=== PATIENT | female | born 1980 | race Caucasian/White ===

== ENCOUNTER 2016-06-02 11:12 | Emergency (ER) | payer OTHER ==
[2016-06-02 11:52] LABS: SPECIFIC GRAVITY 1.015 (1.001-1.030); URINE BILIRUBIN NEGATIVE (NEGATIVE); URINE BLOOD NEGATIVE (NEGATIVE); URINE GLUCOSE (UA) NEGATIVE (NEGATIVE); URINE LEUKOCYTE ESTERASE NEGATIVE (NEGATIVE); URINE NITRITE NEGATIVE (NEGATIVE); URINE PROTEIN NEGATIVE (NEGATIVE); URINE UROBILINOGEN NORMAL (0-1 mg/dl)
[2016-06-02 12:04] LABS: URINE APPEARANCE CLEAR; URINE COLOR YELLOW
[2016-06-02] MEDS ORDERED: SODIUM CHLORIDE 0.9% 1,000 ML ONE (12:27)
[2016-06-02] MEDS ORDERED: ONDANSETRON 4 MG/2ML 2 ML VIAL ONE (12:27)
[2016-06-02] MEDS ORDERED: MORPHINE SULFATE 4 MG/ML SYRINGE ONE (12:38)
[2016-06-02 12:41] LABS: ABSOLUTE NEUTROPHIL COUNT 8.2 K/mm3 (1.8-7.7); BASO % 0.3 % (0.2-1.0); EOS # 0.1 (0.0-0.5); HEMATOCRIT 31.6 % (37.0-47.0); HEMOGLOBIN 10.8 gm/l (12.0-16.0); IMM NEUT # 0.5 K/mm3 (0-0.2); IMM NEUT% 4.1 % (0-1); LYMPH # 1.6 (1.0-4.8); LYMPH % 13.5 % (15-45); MEAN CELL VOLUME 88.8 fl (81.0-99.0); MEAN CORPUSCULAR HEMOGLOBIN 30.3 pg (27.0-31.0); MEAN CORPUSCULAR HGB CONC 34.2 g/dl (33.0-37.0); MONO # 1.2 (0.0-0.8); MONO % 10.1 % (4-12); PLATELET COUNT 261 K/mm3 (130-400); RED CELL DISTRIBUTION WIDTH 13.1 % (11.5-14.5)
--- NOTE | 2016-06-02 13:07 | CT ---
HEAD CT WITHOUT CONTRAST HISTORY: 37 weeks . Headache. Arm numbness and tingling. No intravenous contrast administered. Contiguous axial images acquired from skull base to vertex. COMPARISON:None. BRAIN VOLUME:Grossly unremarkable for patient age. VENTRICULAR SIZE:No gross ventriculomegaly. FOCAL MASS EFFECT:None. ACUTE INTRACRANIAL HEMORRHAGE:None. CALVARIUM:Grossly intact. VISIBLE PARANASAL SINUSES AND MASTOID AIR CELLS:Grossly clear. IMPRESSION: No gross mass effect, ventriculomegaly, or acute intracranial hemorrhage. Results were electronically transmitted to the electronic medical record at 06/02/2016 at 1304 hours.
--- NOTE | 2016-06-02 13:10 | CT ---
CERVICAL SPINE CT WITHOUT CONTRAST HISTORY: Upper extremity numbness, . No intravenous contrast administered contiguous axial images acquired from the posterior fossa to the lower T2 level. FINDINGS ALIGNMENT: Moderate stenosis of gross listhesis. COMPRESSION DEFORMITY: None. DISC SPACES: Mild to moderate narrowing at the C5-6 level with osteophyte formation. FRACTURE: No displaced fracture. DEGENERATIVE CHANGE: Disc osteophyte ridge formation at C5-6 with suggestion of broad-based central protrusion, evaluation at this level limited right shoulder artifact. FORAMINAL NARROWING: None identified. PARASPINAL SOFT TISSUES: Airway patent. No gross mass effect. LUNG APICES: Grossly unremarkable within field of view. IMPRESSION: Reversal of cervical lordosis which can relate to positioning or spasm. Early disc degeneration at the C5-6 level. No cervical spine fracture identified.
[2016-06-02 13:41] LABS: I-STAT GLUCOSE 78 mg/dL (70-105)
[2016-06-02 13:42] LABS: I-STAT CHLORIDE 105 mEq/L (101-111); I-STAT CREATININE 0.4 mg/dL (0.6-1.3); I-STAT TCO2 21 mEq/L (21-31)
[2016-06-02] MEDS ORDERED: MORPHINE SULFATE 2 MG/ML SYRINGE ONE (14:05)
[2016-06-02 14:31] LABS: ALB/GLOB RATIO 1.2 (>1.0); ALBUMIN 3.7 gm/dL (3.5-5.7); CALCIUM 9.2 mg/dL (8.6-10.3)
== END 2016-06-02 14:32 | disposition home or self-care (01) ==
LOC: ED 11:12
DX: O26.893 Other specified pregnancy related conditions, third trimester (principal); R51 Headache; R20.0 Anesthesia of skin; M50.322 Other cervical disc degeneration at C5-C6 level; Z3A.37 37 weeks gestation of pregnancy
CPT/HCPCS: 85025; 80047; 80053; 81003; 72125; 70450; 96375; 96376; 99284 ×2; 96374; J2270 ×2; J2405; J7030

== ENCOUNTER 2016-06-19 16:51 | Inpatient (IN) | payer OTHER ==
[2016-06-19 17:18] VITALS: BMI 30.2
--- NOTE | 2016-06-19 18:59 | US ---
Exam: Obstetric ultrasound biophysical profile COMPARISON: None INDICATION: Post dates. Nonreassuring strip in clinic. EGA 40 weeks 5 days. Findings: Obstetric ultrasound biophysical profile was obtained. Real-time sonographic imaging demonstrated a single live intrauterine in vertex presentation with a heart rate of 133 bpm. JOSE is 35.4 cm. Biophysical profile is as follows: breathing movements: 0 motion: 2 tone: 2 Amniotic fluid volume: 2 Total score 6 out of 8. IMPRESSION: 1. Biophysical profile score 6 out of 8, score of 0 for breathing movements. 2. JOSE 35.4 cm. 3. Single live intrauterine in vertex presentation with a heart rate of 133 bpm. Report called to Dr. Mcdonald 1855 hours 06/19/2016.
[2016-06-19] MEDS ORDERED: OXYTOCIN IN LR 500 ML IV ONE ×2 (19:40→20:13)
[2016-06-19] MEDS ORDERED: LACTATED RINGERS 1,000 ML ONE (20:13)
[2016-06-19] MEDS ORDERED: MINERAL OIL 25 ML BOT ONE (20:13)
[2016-06-19] MEDS ORDERED: LIDOCAINE Viscous 2% 15 ML UDCUP ONE (20:13)
[2016-06-19] MEDS ORDERED: IV START KIT ONE (20:13)
[2016-06-19] MEDS ORDERED: OXYTOCIN 10 UNITS/ML VIAL ONE (20:13)
[2016-06-19] MEDS ORDERED: LIDOCAINE 1% (PRES FREE) 30 ML VIAL ONE (20:13)
[2016-06-19] MEDS ORDERED: PUMP TUBING ONE (20:13)
[2016-06-19] MEDS ORDERED: CALCIUM CARBONATE 500 MG TAB.CHEW PO PRN (22:40)
--- NOTE | 2016-06-19 22:48 | PDOC36 ---
Provider Note Subject: Intrapartum note Note: Full H&P dictated Pt feeling some contractions more now. FHT: 130's, reactive, mod melissa [place]: q2-3 min SVE: 2//-3 Cook catheter, 60cc placed Continue mechanical induction
[2016-06-20 00:14] LABS: HEMATOCRIT 36.2 % (37.0-47.0); HEMOGLOBIN 11.9 gm/l (12.0-16.0); MEAN CELL VOLUME 90.5 fl (81.0-99.0); MEAN CORPUSCULAR HEMOGLOBIN 29.8 pg (27.0-31.0); MEAN CORPUSCULAR HGB CONC 32.9 g/dl (33.0-37.0); RED CELL DISTRIBUTION WIDTH 13.6 % (11.5-14.5)
[2016-06-20] MEDS ORDERED: DIPHENHYDRAMINE HCL 25 MG CAPSULE PO ONE (01:56)
[2016-06-20] MEDS ORDERED: BUTORPHANOL TARTRATE 1 MG/ML VIAL IV ONE (03:10)
[2016-06-20] MEDS: LACTATED RINGERS 1,000 ML IV PRN ×3 (04:06→06:06)
[2016-06-20] MEDS ORDERED: EPIDURAL PUMP SET ONE (04:13)
[2016-06-20] MEDS ORDERED: FENTANYL/ROPIVACAINE EPIDURAL 250 ML EP ONE (04:14)
[2016-06-20] MEDS: FENTANYL/ROPIVACAINE EPIDURAL 250 ML EP SCH (04:57)
[2016-06-20] MEDS ORDERED: EPIDURAL PROCEDURE TRAY ONE (05:17)
[2016-06-20] MEDS ORDERED: NALOXONE HCL 0.4 MG/ML VIAL IV PRN (05:40)
[2016-06-20] MEDS ORDERED: ONDANSETRON 4 MG/2ML 2 ML VIAL IV PRN (05:40)
[2016-06-20] MEDS ORDERED: METOCLOPRAMIDE HCL 5 MG/ML 2ML VIAL IV PRN (05:40)
[2016-06-20] MEDS ORDERED: EPHEDRINE SULFATE 50 MG/ML 1ML VIAL IV PRN (05:40)
[2016-06-20] MEDS ORDERED: NALBUPHINE HCL 20 MG/ML AMP IV PRN (05:40)
[2016-06-20] MEDS ORDERED: DIPHENHYDRAMINE HCL 50 MG/1 ML VIAL IV PRN (05:40)
[2016-06-20] MEDS ORDERED: SODIUM CHLORIDE 0.9% 500 ML IV PRN (05:40)
[2016-06-20] MEDS ORDERED: LACTATED RINGERS 500 ML IV PRN (05:40)
[2016-06-20] MEDS: LACTATED RINGERS 1,000 ML IV SCH ×3 (08:07→10:26)
--- NOTE | 2016-06-20 08:41 | PDOC36 ---
Provider Note Subject: Feeling regular contractions. VSS SVE: 6/100/B, AROM to copious clear fluid FHT: 145/mod/+accel/-decel [place]: q3 min Plan: IOL for polyhydramnios. Patient francie on her own. H/O large babies. EFW 8#11oz. AROM to copious clear fluid. Will continue to monitor closely.
[2016-06-20] MEDS ORDERED: FAMOTIDINE 20 MG TABLET PO SCH (09:00)
--- NOTE | 2016-06-20 09:15 | HP ---
Enid White [id number] DATE OF ADMISSION: 06/22/2016 ADMITTING DIAGNOSES: 1. A 39 weeks plus 3 days . 2. Polyhydramnios. 3. Labor. 4. Induction of labor. HISTORY AND PHYSICAL: The patient is a 36-year-old 4, para 3-0-0-3 with estimated delivery date of 06/23/2016. The patient was initially dated by a 12 week ultrasound and has been followed by Dr. Mcdonald in the office. Patient has a history of anxiety, depression, and chronic pain and has discontinued her medications of Adderall, Xanax, Oxycodone, and Gabapentin in early . Patient had declined genetic testing in early , however, subsequently had a negative quad screen. 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 The placenta was posterior. One hour glucose testing was negative. Patient was recently admitted approximately three weeks ago with conglomeration of symptoms including headaches and numbness in arms and hands. Symptoms at that time have since resolved. At approximately 37 weeks it was noted that patient had a slightly increased fundal height and this has increased today to 43 cm. An ultrasound was subsequently performed which showed estimated weight of 3928 gm, however, the amniotic fluid index was 37. A non-stress test showed heart tracing in the 130's with minimal variability and subsequently she was transferred to [facility] for further evaluation. heart tracing in the [facility] was 130's and moderate variability, reactive, and reassuring. A biophysical profile was 6/8 with -2 for breathing. Patient's laboratory studies showed a blood type of A positive with negative antibody screen. Her Group B Streptococcus screen was negative and one hour glucose test was negative as well. Other testing was unremarkable. PAST MEDICAL HISTORY: Patient has a history of depression, anxiety, and panic attacks, as well as lower back pain. She had been on Gabapentin, Adderall, and Xanax, as well as occasional oxycodone for her pain, however, has not taken these medications throughout her . PAST OBSTETRICAL HISTORY: Patient has had three prior normal vaginal deliveries. Patient's first had a duplicate renal system. Her babies range from 8 pounds 7 ounces to 8 pounds 11 ounces. PHYSICAL EXAMINATION: GENERAL: The patient is in mild discomfort with her contractions. HEART: Regular rate and rhythm. LUNGS: Clear to auscultation bilaterally. ABDOMEN: Distended and gravid and appears to have a enlarged weight, however, ultrasound shows polyhydramnios. EXTREMITIES: Normal. PELVIC: Shows cervix 1 to 2 cm dilated, 90% effaced, -3 station, and cephalic. ASSESSMENT AND PLAN: This is a 36-year-old 4, para 3 at 39 weeks plus 3 days. Patient is francie regularly every 2 to 3 minutes and heart tracing is 130's reactive with moderate variability, however, with some equivocal biophysical profile testing score of 6/8 along with polyhydramnios of uncertain etiology I have recommended to go ahead and admit the patient for monitoring overnight with induction of labor. The plan has been reviewed with the patient. The risk of induction including section, hyperstimulation, or infection were reviewed. We have discussed polyhydramnios and possible etiologies though, the etiology of her polyhydramnios is currently uncertain. JOB: [id number]
--- NOTE | 2016-06-20 11:15 | PCMDEL ---
Delivery Note - Labor Pushed (hr/min):: 3 min - Delivery Delivery (Date): 06/20/16 Delivery (Time): 11:01 Gender: Male Presentation: Cephalic Position: OA Umbilical Cord: 3 Vessel Delayed Cord Clamping:: < 1-2 min 1 Minute Total: 9 5 Minute Total: 9 Placenta:: intact EBL:: 150 Perineum:: intact Anesthesia/Meds:: epidural
[2016-06-20] MEDS ORDERED: BENZOCAINE/MENTHOL 60 APPLIC/BOT TP PRN (11:30)
[2016-06-20] MEDS ORDERED: ACETAMINOPHEN 325 MG TABLET PO PRN (11:30)
[2016-06-20] MEDS ORDERED: MEASLES,MUMPS&RUBELLA VACCINE 0.5 ML VIAL SUB-Q V ONE (11:30)
[2016-06-20] MEDS ORDERED: LANOLIN 50 APPLIC/7G TUBE TP PRN (11:30)
[2016-06-20] MEDS ORDERED: PNEUMOCOCCAL 23-VAL P-SAC VAC 0.5 ML VIAL SUB-Q V ONE (11:35)
[2016-06-20] MEDS ORDERED: LACTATED RINGERS 1,000 ML ONE (12:19)
[2016-06-20] MEDS ORDERED: IV START KIT ONE (12:19)
[2016-06-20] MEDS: IBUPROFEN 800 MG TABLET PO PRN (15:34)
[2016-06-20] MEDS: OXYCODONE/ACETAMINOPHEN 5/325 MG TABLET PO PRN ×2 (16:47→20:08)
[2016-06-21] MEDS: OXYCODONE/ACETAMINOPHEN 5/325 MG TABLET PO PRN ×8 (01:05→23:14)
[2016-06-21] MEDS: IBUPROFEN 800 MG TABLET PO PRN ×4 (01:05→20:23)
[2016-06-21 06:58] LABS: HEMATOCRIT 30.2 % (37.0-47.0); HEMOGLOBIN 10.2 gm/l (12.0-16.0)
[2016-06-21] MEDS: DOCUSATE SODIUM 100 MG CAPSULE PO PRN ×2 (07:52→17:30)
[2016-06-21] MEDS: FENTANYL/ROPIVACAINE EPIDURAL 250 ML EP SCH (07:53)
--- NOTE | 2016-06-21 10:17 | PDOC44 ---
- Subjective Day: 1 Pt is sitting up in bed; appears happy and comfortable; make-up on. Baby is with dad, bonding. Pt describes her suffering with chronic back pain. She also has noticed a weird feeling in SI area on left since placement of epidural. This was discussed. If she is concerned, I will have her talk with environmental health and safety intern. Right now percocet seems to be working well for her. We also discussed baby's broken clavicle: very surprising since she did minimal pushing and there was no dystocia with the at all. Reports Pain Tolerable, Reports , Reports Lochia Light - Objective Temp Pulse Resp BP Pulse Ox 98.0 F 74 18 130/81 06/21/16 08:40 06/21/16 08:40 06/21/16 08:40 06/21/16 08:40 Lab Results 06/21/16 06:15 Hgb 10.2 L Hct 30.2 L Current Medications Generic Name Dose Route Start Last Admin Trade Name Freq PRN Reason Stop Dose Admin Acetaminophen 325 - 650 mg 06/20/16 11:30 Tylenol PO Q4H PRN Pain (Mild) Benzocaine/Menthol 1 applic 06/20/16 11:30 Dermoplast TP PRN PRN Patient Comfort Docusate Sodium 100 mg 06/20/16 11:30 06/21/16 07:52 Colace PO 100 mg DAILY PRN Administration Comfort Emollient Ointment 1 applic 06/20/16 11:30 Wza-G-Iiksif TP PRN PRN sore nipples Ropivacaine/Fentanyl/NS 250 mls @ 0 mls/hr 06/20/16 05:00 06/21/16 07:53 Fentanyl 2 Mcg/Ml + Ropivacaine 0.125% Ep Bag EP Not Given EPI DAVIDA Protocol Per Protocol Ibuprofen 800 mg 06/20/16 11:30 06/21/16 07:52 Motrin PO 800 mg Q6H PRN Administration Pain (Mild) Oxycodone/Acetaminophen 1 tab 06/20/16 16:35 06/21/16 07:53 Percocet 5/325 PO 1 tab Q3H PRN Administration Pain Sodium Chloride 10 ml 06/20/16 09:00 06/21/16 07:53 Normal Saline 10ml Flush IV Not Given Q8HR [facility] Sodium Chloride 10 ml 06/20/16 11:30 06/20/16 13:45 Normal Saline 10ml Flush IV 10 ml PRN PRN Administration IV Flush - Physical Exam General: Afebrile Psych/Mental Status: Mood/Affect Appropriate Neurological: Alert, Oriented x 4 Lungs: Clear to Auscultation Bilaterally Cardiovascular: Regular Rate and Rhythm Skin: Normal Color, Warm - Problems:Assessment/Plan (1) (normal spontaneous vaginal delivery) Status: AcuteAssessment/Plan: Pt seems to be doing well ppartum. Succesful induction of labor due to BPP of 6 /8 and polyhydramnios. Vag yesterday morning with benefit of epidural narcotics. Post cramping with and also chronic back pain controlled with ibuprofen and percocet. Baby noted to have a fractured clavicle. (2) Polyhydramnios Status: AcuteAssessment/Plan: kidneys being assessed by baby doc. Disposition: Stable, Anticipate DC Home Tomorrow
[2016-06-21] MEDS ORDERED: MAGNESIUM HYDROXIDE 30 ML UDCUP PO PRN (17:33)
[2016-06-21] MEDS: DOCUSATE SODIUM 100 MG CAPSULE PO SCH (20:23)
[2016-06-22] MEDS: OXYCODONE/ACETAMINOPHEN 5/325 MG TABLET PO PRN ×3 (02:08→09:07)
[2016-06-22] MEDS: IBUPROFEN 800 MG TABLET PO PRN ×2 (05:39→11:49)
--- NOTE | 2016-06-22 07:53 | PDOC39B ---
Hospital Course: ADMIT DATE: 06/19/16 DISCHARGE DATE: 06/22/16 ADMISSION DIAGNOSES: intrauterine 39.3 weeks, polyhydramnios, labor PROCEDURES: induction of labor, spontaneous vaginal delivery HISTORY OF PRESENT ILLNESS: 36 year old G4 T3 L3 at 39 weeks 4 days presenting for induction of labor HOSPITAL COURSE: The patient had an uneventful post course with exception of backache. baby was found to have a fractured clavicle. By day of discharge the patient is ambulating, eating, voiding, and passing flatus without difficulty. Pain is controlled and lochia is appropriate. She is - Physical Exam Vital Signs: Temp Pulse Resp BP Pulse Ox 97.9 F 71 18 129/82 06/22/16 02:11 06/22/16 02:11 06/22/16 02:11 06/22/16 02:11 General: Afebrile, No Acute Distress Psych/Mental Status: Mood/Affect Appropriate, Judgment/Insight Intact, Bonding Well Breast: Soft, Skin intact, Nipples Intact, No Tenderness, No Erythema, No Engorged Fundus: Firm, Midline, At Umbilicus, Other (nontender) Genitourinary: Other (voiding without difficulty) Lochia: Light Rectal Exam: Other Extremities: No Tenderness Other Findings: has backache. - Discharge Diagnosis (1) Anemia, Status: Acute - Discharge Plan Condition: Stable Disposition: Home Additional Instructions: nothing in vagina x 6 weeks. Prescriptions: Ibuprofen [Motrin] 800 mg PO Q8H PRN #30 tablet PRN Reason: Pain FERROUS SULFATE (65 Fe) [IRON FERROUS SULFATE 325 MG TABLET (SHF)] 325 mg PO DAILY #30 tab Oxycodone HCl/Acetaminophen [PERCOCET 5/325 MG TABLET (SHF)] 1 - 2 tab PO Q4H PRN #14 tablet PRN Reason: Pain (Moderate)
[2016-06-22] MEDS: DOCUSATE SODIUM 100 MG CAPSULE PO SCH (09:07)
[2016-06-22 09:26] VITALS: BP 121/83
== END 2016-06-22 12:50 | disposition home or self-care (01) | DRG 775 ==
LOC: FBCOUT 16:51 → FBC 16:52 → FBCOUT 19:13
PROVIDERS: ADMIT Obstetrics & Gynecology; ATTEND Obstetrics & Gynecology
PROC: 10907ZC Drainage of Amniotic Fluid, Therapeutic from Products of Conception, Via Natural or Artificial Opening (ICD-10-PCS; 2016-06-19)
PROC: 10E0XZZ Delivery of Products of Conception, External Approach (ICD-10-PCS; principal; 2016-06-20)
DX: O40.3XX0 Polyhydramnios, third trimester, not applicable or unspecified (principal); D62 Acute posthemorrhagic anemia; O99.344 Other mental disorders complicating childbirth; F41.8 Other specified anxiety disorders; O99.02 Anemia complicating childbirth; O09.523 Supervision of elderly multigravida, third trimester; Z3A.39 39 weeks gestation of pregnancy; Z37.0 Single live birth